=== PATIENT | male | born 1995 | race Two or more races ===

== ENCOUNTER 2023-06-21 23:01 | Emergency (ER) | payer OTHER ==
[~2023-06-21] VITALS: Ht 188 cm; Wt 86.2 kg
[2023-06-22] MEDS ORDERED: CEPHALEXIN500 MG PO (01:02)
== END 2023-06-22 01:10 ==
LOC: ER 23:01
DX: S51.011A Laceration without foreign body of right elbow, initial encounter (principal); W25.XXXA Contact with sharp glass, initial encounter; Y93.89 Activity, other specified; Y92.89 Other specified places as the place of occurrence of the external cause; Y99.8 Other external cause status